=== PATIENT | female | born 1945 | race Caucasian/White ===

== ENCOUNTER → 2023-12-26 12:36 | Outpatient (REF) | payer MEDICARE, BC, SELFPAY | LOC: RCS 12:36 | PROVIDERS: ATTENDING PHYSICIAN Internal Medicine Cardiovascular Disease; FAMILY PHYSICIAN Family Medicine | DX: I42.9 Cardiomyopathy, unspecified (principal); I42.1 Obstructive hypertrophic cardiomyopathy | CPT/HCPCS: 93017 ==

== ENCOUNTER → 2024-05-11 11:15 | Outpatient (REF) | payer MEDICARE, BC, SELFPAY | LOC: HWRAD 11:15 | PROVIDERS: ATTENDING PHYSICIAN Urology; FAMILY PHYSICIAN Family Medicine | DX: R31.29 Other microscopic hematuria (principal) | CPT/HCPCS: 76775 ==

== ENCOUNTER → 2025-03-07 09:07 | Outpatient (REF) | payer MEDICARE, BC, SELFPAY | LOC: HWRCS 09:07 | PROVIDERS: ATTENDING PHYSICIAN Internal Medicine Cardiovascular Disease; FAMILY PHYSICIAN Internal Medicine | DX: I42.8 Other cardiomyopathies (principal) | CPT/HCPCS: 93306 ==

== ENCOUNTER → 2025-07-23 11:29 | Outpatient (REF) | payer MEDICARE, BC, SELFPAY | LOC: RAD 11:29 | PROVIDERS: ATTENDING PHYSICIAN Internal Medicine | DX: M79.605 Pain in left leg (principal) | CPT/HCPCS: 93971 ==